=== PATIENT | female | born 1935 | race Caucasian/White ===

== ENCOUNTER 2019-07-05 19:22 | Emergency (ER) | payer OTHER ==
[~2019-07-05] VITALS: Ht 162.6 cm; Wt 63.5 kg
[2019-07-05 19:50] VITALS: BP_SYST 127
--- NOTE | 2019-07-05 19:50 | NUR ---
Pt BIB daughter for medical clearnace prior to transferring to [facility]. Pt AAOx2, confused per baseline, calm demeanor. Denies c/o pain or discomfort, no needs verbalized.
--- NOTE | 2019-07-05 19:50 | NUR ---
Pt wheeled to bed 5 for evaluation
--- NOTE | 2019-07-05 19:55 | NUR ---
Dr. Mathis at bedside.
[2019-07-05 20:11] LABS: BASOPHILS # (AUTO) 0.1 K/uL (0.0-0.2); BASOPHILS % (AUTO) 1.1 % (0.0-2.0); EOSINOPHILS # (AUTO) 0.1 K/uL (0.0-0.4); EOSINOPHILS % (AUTO) 1.7 % (0.0-4.0); HEMATOCRIT 42.3 % (36-48); HEMOGLOBIN 14.4 g/dL (12.0-16.0); LYMPHOCYTES # (AUTO) 1.9 K/uL (1.0-5.5); LYMPHOCYTES % (AUTO) 27.8 % (20.5-51.5); MEAN CORPUSCULAR HEMOGLOBIN 31 pg (27-31); MEAN CORPUSCULAR HGB CONC 34 % (32-36); MEAN CORPUSCULAR VOLUME 90 fL (79.0-98.0); MONOCYTES # (AUTO) 0.7 K/uL (0.0-1.0); MONOCYTES % (AUTO) 10.8 % (1.7-9.3); NEUTROPHILS # (AUTO) 3.9 K/uL (1.8-7.7); NEUTROPHILS % (AUTO) 58.6 % (40.0-70.0); PLATELET COUNT (AUTO) 271 K/uL (130-430); RED CELL DISTRIBUTION WIDTH 13.9 % (9.0-15.0); WHITE BLOOD COUNT (AUTO) 6.7 K/uL (4.8-10.8)
[2019-07-05 20:25] LABS: ANION GAP 10 (5-15); CALCIUM 9.3 mg/dL (8.4-11.0); CHLORIDE 104 mmol/L (98-107); CREATININE 0.67 mg/dL (0.55-1.30); GLUCOSE 103 mg/dL (70-99); POTASSIUM 3.6 mmol/L (3.5-5.1); SODIUM SERUM 135 mmol/L (136-145); UREA NITROGEN, BLOOD 12 mg/dL (8-21)
[2019-07-05 20:29] LABS: ALANINE AMINOTRANSFERASE 17 U/L (12-78); ALBUMIN 4.2 g/dL (3.4-4.8); ASPARTATE AMINOTRANSFERASE 17 U/L (10-37); CHOLESTEROL 177 mg/dL (<200); HDL CHOLESTEROL 64 mg/dL (>55); LDL CHOLESTEROL 90 mg/dL (<100); TOTAL BILIRUBIN 0.4 mg/dL (0.0-1.0); TRIGLYCERIDES 61 mg/dL (30-150)
[2019-07-05 20:31] LABS: ACETAMINOPHEN < 1 ug/mL (1-30)
[2019-07-05 20:34] LABS: ALCOHOL, BLOOD < 3 mg/dL (<10)
--- NOTE | 2019-07-05 21:00 | NUR ---
Pt alert, denies c/o pain or discomfort, no needs verbalized.
[2019-07-05 22:14] LABS: BILIRUBIN,URINE NEGATIVE (NEGATIVE); CLARITY/URINE CLOUDY (CLEAR); COLOR,URINE YELLOW (YELLOW); GLUCOSE,URINE NEGATIVE (NEGATIVE); KETONES,URINE NEGATIVE (NEGATIVE); LEUKOCYTE ESTERASE ,URINE 2+ (NEGATIVE); NITRITE, URINE POSITIVE (NEGATIVE); PROTEIN URINE NEGATIVE (NEGATIVE); UROBILINOGEN,URINE 0.2 (0.2-1.0)
[2019-07-05 22:15] LABS: BLOOD, URINE TRACE (NEGATIVE)
[2019-07-05 22:27] LABS: BARBITURATE, URINE NEGATIVE (NEG <=200); BENZODIAZEPINE, URINE NEGATIVE (NEG <=150); CANNABINOID, URINE NEGATIVE (NEG <=50); COCAINE, URINE NEGATIVE (NEG <=150); METHAMPHETAMINES SCREEN,URINE NEGATIVE (NEG <=500); OPIATE, URINE NEGATIVE (NEG <=100); PHENCYCLIDINE SCREEN,URINE NEGATIVE (NEG <=25); UR TRICYCLIC ANTIDEPRESSANTS NEGATIVE (NEG <=300); URINE AMPHETAMINE NEGATIVE (NEG <=500); URINE METHADONE NEGATIVE (NEG <=200); URINE OXYCODONE SCREEN NEGATIVE (NEG <=100); URINE PROPOXYPHENE SCREEN NEGATIVE (NEG <=300)
[2019-07-05 22:33] LABS: BACTERIA,URINE MANY /HPF (None Seen); MUCUS,URINE 2+ /LPF (None Seen); RBC,URINE 0-3 /HPF (0-3); WBC,URINE 20-50 /HPF (0-3)
[2019-07-05 22:50] VITALS: BP_SYST 124
--- NOTE | 2019-07-05 22:50 | NUR ---
Patient to be transferred to [facility]. Is being transferred due to higher level of care. Receiving facility has accepting physician and available space. ER physician has signed transfer form. Patient or responsible constitution party has agreed to transfer and signed form. Patient belongings inventoried and will be sent with patient. Copy of nursing notes, lab reports, EKG, Physicians Orders and X-rays to be sent with patient. Report called to BECKA Duran at receiving facility. Receiving physician is Dr. Martin. Pt leaves ER via stretcher in stable condition in c/o Medic-1.
== END 2019-07-05 22:50 | disposition short-term general hospital (02) ==
LOC: SED 19:22
DX: N39.0 Urinary tract infection, site not specified (principal); K21.9 Gastro-esophageal reflux disease without esophagitis; F41.9 Anxiety disorder, unspecified; G30.9 Alzheimer's disease, unspecified; F02.80 Dementia in other diseases classified elsewhere, unspecified severity, without behavioral disturbance, psychotic disturbance, mood disturbance, and anxiety
CPT/HCPCS: 36415; 80053; 80061; 80307; 81000; 83036; 85025; 87081; 87086; 87186; 99285; G0480; G0481; G0482

== ENCOUNTER 2019-07-11 20:37 | Inpatient (IN) | payer OTHER ==
[~2019-07-11] VITALS: Ht 154.9 cm; Wt 54.9 kg
[~2019-07-11 20:37] MED LIST: BUPIVACAINE /EPINEPHRINE/PF 0.5% 30 ML VIAL INJ ONE; CEFAZOLIN 2 GM IVPB PREMIX 50 ML IV ONE; DEXAMETHASONE SOD PHOSPHATE 4 MG/ML VIAL IVP ONE; MEPERIDINE HCL/PF 100 MG/ML AMP IM ONE; ONDANSETRON HCL 4 MG/2 ML VIAL IVP ONE; PROPOFOL 200MG/ 20ML VIAL (DIPRIVAN) IV ONE; SEVOFLURANE 15 MIN GAS INH ONE; fentaNYL CITRATE/PF 100 MCG/2 ML AMP IVP ONE
[2019-07-11 20:45] VITALS: BP_SYST 130
[2019-07-11] MEDS ORDERED: cefTRIAXone 1 GM in D5W 50 ML IV ONE (22:15)
--- NOTE | 2019-07-11 22:56 | NUR ---
Placed in room 2 . Placed on desk monitor, blood pressure machine and pulse oximeter. To gown for exam. Side rails up. Report given to ARIAN JOVEL.
--- NOTE | 2019-07-11 22:56 | NUR ---
Pt sent from [facility] r/t Right femur fx sustained from an unwitnessed fall on Tuesday. Pt AAOx1, denies c/o pain or discomfort. VSS, CL[place].
--- NOTE | 2019-07-11 23:00 | NUR ---
Dr. Amanda at bedside.
--- NOTE | 2019-07-11 23:10 | NUR ---
# 20 gauge angiocath placed to LAC. Use of asceptic technique. Opsite placed over site. Blood return noted. Blood for lab drawn from site. Flushed with 10 cc of normal saline. No evidence of infiltration noted. Patient tolerated well.
--- NOTE | 2019-07-11 23:30 | NUR ---
#14 In/Out cath procedure performed. ~100 mL cloudy yellow urine return. Specimen collected and sent to lab. Pt tolerated well.
[2019-07-11 23:38] LABS: BASOPHILS % (AUTO) 0.4 % (0.0-2.0); EOSINOPHILS # (AUTO) 0.1 K/uL (0.0-0.4); EOSINOPHILS % (AUTO) 0.8 % (0.0-4.0); HEMOGLOBIN 13.9 g/dL (12.0-16.0); LYMPHOCYTES # (AUTO) 1.5 K/uL (1.0-5.5); LYMPHOCYTES % (AUTO) 16.5 % (20.5-51.5); MEAN CORPUSCULAR HEMOGLOBIN 30 pg (27-31); MEAN CORPUSCULAR HGB CONC 34 % (32-36); MEAN CORPUSCULAR VOLUME 90 fL (79.0-98.0); MONOCYTES # (AUTO) 1.1 K/uL (0.0-1.0); MONOCYTES % (AUTO) 11.7 % (1.7-9.3); NEUTROPHILS # (AUTO) 6.4 K/uL (1.8-7.7); NEUTROPHILS % (AUTO) 70.6 % (40.0-70.0); PLATELET COUNT (AUTO) 260 K/uL (130-430); RED BLOOD CELL COUNT(AUTO) 4.58 MIL/uL (4.2-6.2); RED CELL DISTRIBUTION WIDTH 13.9 % (9.0-15.0); WHITE BLOOD COUNT (AUTO) 9.1 K/uL (4.8-10.8)
--- NOTE | 2019-07-11 23:50 | NUR ---
Specimens for Influenza and MRSA collected and sent to lab.
[2019-07-11 23:51] LABS: ANION GAP 8 (5-15); CALCIUM 9.1 mg/dL (8.4-11.0); CHLORIDE 104 mmol/L (98-107); GLUCOSE 147 mg/dL (70-99); POTASSIUM 3.9 mmol/L (3.5-5.1); SODIUM SERUM 141 mmol/L (136-145); UREA NITROGEN, BLOOD 23 mg/dL (8-21)
[2019-07-11 23:56] LABS: ALANINE AMINOTRANSFERASE 24 U/L (12-78); ALBUMIN 3.4 g/dL (3.4-4.8); ASPARTATE AMINOTRANSFERASE 22 U/L (10-37); TOTAL BILIRUBIN 0.3 mg/dL (0.0-1.0)
[2019-07-11] MEDS ORDERED: HYDR-4272 PO (23:59)
[2019-07-11] MEDS ORDERED: ACET325T53 PO ×2 (23:59)
[2019-07-11] MEDS ORDERED: HYDR-4037 PO (23:59)
[2019-07-11] MEDS ORDERED: PRO40 PO (23:59)
[2019-07-11] MEDS ORDERED: POLY17PO4 PO (23:59)
[2019-07-11] MEDS ORDERED: VITAMIN D PO (23:59)
[2019-07-11] MEDS ORDERED: NICO-736 TP (23:59)
[2019-07-11] MEDS ORDERED: DONE10TA44 PO (23:59)
[2019-07-11] MEDS ORDERED: ZOLP5TAB2 PO (23:59)
[2019-07-11] MEDS ORDERED: NITR-85 PO (23:59)
[2019-07-11] MEDS ORDERED: ARIP10TA9 PO (23:59)
[2019-07-11] MEDS ORDERED: SENN8.6T19 PO (23:59)
--- NOTE | 2019-07-12 | NUR ---
Medication reconciliation completed with information provided by list from facility. Any prior medication reconciliation on file was reviewed and corrected.
--- NOTE | 2019-07-12 | NUR ---
Patient will be admitted to care of [facility]. Admitted to Medsurg unit. Will go to room 120A. Complete and up to date summary report printed. SBAR report to be given at bedside with opportunity for questions.
--- NOTE | 2019-07-12 00:08 | NUR ---
Pt to CT via stretcher in stable condition.
--- NOTE | 2019-07-12 00:20 | NUR ---
Pt returns from CT. Denies c/o pain or discomfort, no needs verbalized. VSS.
--- NOTE | 2019-07-12 00:22 | NUR ---
# 16 FR Kellogg catheter with use of sterile technique. Immediate return of 100 cc Cloudy yellow urine noted. Bedside drainage bag placed below level of bladder. Urine sample collected and sent to lab. Pt tolerated procedure fair. Patient unable to toilet self.
--- NOTE | 2019-07-12 00:24 | NUR ---
Patient will be admitted to care of Dr. Peterson. Admitted to Med/Surg unit. Will go to room 120A. Belongings list completed. Complete and up to date summary report printed. Pt report called to BECKA Moore.
[2019-07-12 00:55] VITALS: BP_SYST 168
--- NOTE | 2019-07-12 00:56 | NUR ---
ADMISSION: The patient, JUDY NICOLAS, 83 y/o, F admitted by MIRIAM MACARIO MD, was given written information regarding hospital policies, unit procedures and contact persons. Pt was informed her nurse will be Stephanie.
[2019-07-12 01:12] VITALS: BP_SYST 168
--- NOTE | 2019-07-12 01:27 | NUR ---
Called the Emergency Department to inquire on whether they received a Diet order for this patient. ED staff stated that they spoke with Dr Peterson, who will be placing his own diet orders and any additional orders. Will await for orders to be placed.
--- NOTE | 2019-07-12 01:36 | NUR ---
CONSULT: CONSULT CALLED FOR DR. ROMERO I SPOKE WITH JUAN RAMON GARCIA REASON FOR CONSULT: RIGHT HIP FRACTURE REQUESTING CONSULT: DR. MACARIO PAPER BAG MAKING MACHINIST PHONE NUMBER: [phone] Addendum: 07/12/19 at 0533 by Kiki Rodriguez [facility] [place] NOTICED THAT DR. ROMREO IS SUSPENDED I TOLD RN THAT WE HAVE TO NOTIFIED AMIRAH ABOUT IT ALSO I FOUND OUT THAT DR. ROMERO IS ALSO LOAN SECRETARY FOR DR. ROMAN UNLESS WE CALL DR. ROMAN OFFICE AT [phone] THIS CONSULT
[2019-07-12] MEDS ORDERED: FLU VACC TS2019(65UP)/MF59C/PF 45 MCG/0.5 ML SYRINGE I.M. PRN (02:00)
--- NOTE | 2019-07-12 03:24 | NUR ---
Patient resting comfortably in bed, eyes closed. Breathing even and unlabored with visible chest rise and fall noted. No SOB, no acute distress, no signs of pain or facial grimacing noted. Bed is locked, lowest position, 2x side rails up, bed alarm is on. Call light is within reach.
[2019-07-12] MEDS: KCL 20 mEq in D5/0.45NS 1000mL 1,000 ML IV SCH ×2 (03:37→16:58)
--- NOTE | 2019-07-12 04:38 | NUR ---
Julian traction applied with 5lbs. Patient tolerated procedure well.
[2019-07-12 05:22] LABS: BILIRUBIN,URINE NEGATIVE (NEGATIVE); BLOOD, URINE NEGATIVE (NEGATIVE); CLARITY/URINE CLEAR (CLEAR); COLOR,URINE YELLOW (YELLOW); GLUCOSE,URINE NEGATIVE (NEGATIVE); KETONES,URINE NEGATIVE (NEGATIVE); LEUKOCYTE ESTERASE ,URINE NEGATIVE (NEGATIVE); NITRITE, URINE NEGATIVE (NEGATIVE); PROTEIN URINE NEGATIVE (NEGATIVE); UROBILINOGEN,URINE 0.2 (0.2-1.0)
--- NOTE | 2019-07-12 05:43 | NUR ---
Klaudia Bell Patient is unable to state whether she received the flu shot previously. Attempted to call Klaudia Bell where the patient came from at [phone], which is the number that was found in the charts; however, was sent to voicemail that says the hospital is not open until 0830. Will endorse to dayshift to follow up regarding the patients influenza immunization status.
--- NOTE | 2019-07-12 06:35 | NUR ---
Closing Notes Patient is resting comfortably in bed, AAOx1, positive affect, smiling. No SOB, no acute distress, no signs of pain or facial grimacing noted. IV site intact, dressing clean and dry, currently infusing IVF per MD order, see eMAR for details. Bed is locked, lowest position, 2x side rails up, bed alarm is on. Call light is within reach. Fall and safety precautions maintained. All needs have been met during this shift. Will endorse care to oncoming dayshift nurse.
--- NOTE | 2019-07-12 07:15 | NUR ---
received patient alert awake x 1 confused. vitals signs stable. afebrile. lungs bilaterally clear.abdomen soft and non distended. has iv access on the left ac #20. with D5 1/2 NS +20meq kcl at 75cc/hr infusing on well. bed low position, alarmed and locked. has 5lbs bucks traction noted. on the right foot. and has murray catheter in placed. continue to monitor patients status.
--- NOTE | 2019-07-12 07:44 | NUR ---
CONSULTATION PAGED/CALLED Reason for Consultation: RIGHT HIP FRACTURE Person Who was Notified: MICHAEL (EXCHANGE) Consulting Physician: DR. ROMAN Red Leader Specialty: ORTHO Ordering Physician: DR. MACARIO
--- NOTE | 2019-07-12 07:46 | NUR ---
CONSULTATION PAGED/CALLED Reason for Consultation: PSYCHOSIS Person Who was Notified: DR. LAM Consulting Physician: DR. LAM Clinical Data Management Manager Specialty: PSYCHE Ordering Physician: DR. MACARIO
[2019-07-12 09:08] VITALS: BP_SYST 138
--- NOTE | 2019-07-12 09:30 | NUR ---
called dr gifford for pain meds. awaiting to call back
--- NOTE | 2019-07-12 10:48 | NUR ---
pain meds given. made comfortable.
[2019-07-12] MEDS ORDERED: HYDROmorphone 1 MG INJ. 1 MG/ML AMPUL ONE (11:00)
--- NOTE | 2019-07-12 11:16 | NUR ---
Nutrition Update Alirio Scale 15 noted. Pt admitted for acute R hip fracture. Diet: mechanical soft BMI: 22.9 kg/m2 RD to follow per nutrition care standards.
--- NOTE | 2019-07-12 12:00 | NUR ---
student nurse darwin and instructor did ritesh care and had bowel movement x 1 soft brown stool bed changed.
[2019-07-12 12:40] VITALS: BP_SYST 116
[2019-07-12] MEDS ORDERED: PANTOPRAZOLE SODIUM 40 MG TAB PO ONE (13:45)
[2019-07-12] MEDS ORDERED: ACETAMINOPHEN 325 MG TABLET PO PRN (13:45)
[2019-07-12] MEDS ORDERED: ZOLPIDEM TARTRATE 5 MG TABLET PO PRN (13:45)
--- NOTE | 2019-07-12 14:30 | NUR ---
REPORT GIVEN TO MANISHA JOVEL.
--- NOTE | 2019-07-12 14:35 | NUR ---
RESUME CARE Received the report from BECKA River at bedside. Patient resting in the bed. No acute distress. AD RN Davin inserted new IV to LFA, gauge 22, no redness, no swelling, no drainage. On KCl 20mEq in D5 1/2NS at 75ml/hr, infusing well. Womack's traction to right leg intact with 5lbs. Family at bedside. Safety measure maintained. Call light within reached. Bed locked in low position, side rails up, bed alarm on. SBAR received. Will continue to monitor.
--- NOTE | 2019-07-12 15:00 | NUR ---
PATIENT HAS RT HEEL ERYTHEMA NOTED. RT HEEL. PHOTOS TAKEN AND PRESENT ON ADMISSION
[2019-07-12] MEDS: hydrALAZINE HCL 10 MG TABLET PO SCH ×2 (15:03→21:14)
--- NOTE | 2019-07-12 16:17 | NUR ---
Ortho consult follow up: Called exchange, Spoke with Nash to follow up on the consult.
[2019-07-12 16:46] VITALS: BP_SYST 131
--- NOTE | 2019-07-12 17:56 | NUR ---
ORTHO CONSULT Eliel Hoang not coming today. Called exchange and Dr. Stallings energy control officer and stated that he is not doing surgery. Dr. Gomez in the unit at this time, make aware the consult. Per Dr. Gomez he will sign all the paper then will be clear for suspension. will come to see the patient tomorrow.
--- NOTE | 2019-07-12 18:40 | NUR ---
SEEN BY DR. ROMERO WITH ORDER RECEIVED. DR. ROMERO TALKED AND ANSWERED THE QUESTION TO THE FAMILY HAD AT BEDSIDE.
--- NOTE | 2019-07-12 18:50 | NUR ---
CLOSING NOTE Patient resting in the bed. No acute distress. Skin warm and dry to touch. IV intact to LFA, no redness, no swelling, no drainage. On KCl 20mEq in D5 1/2NS at 75ml/hr, infusing well. Womack's traction to right leg intact with 5lbs. Family at bedside. All needs met. Safety measure maintained. Call light within reached. Bed locked in low position, side rails up, bed alarm on. Will endorse to night nurse.
--- NOTE | 2019-07-12 19:40 | NUR ---
Initial note: Received report from isidro RN. Patient is resting in bed. No acute distress. Even and unlabored breathing on room air. IV fluids infusing well to left forearm, no infiltration. Kellogg catheter draining yellow urine to gravity. Bilateral wrist mittens in place, no skin breakdown noted. Call light with patient. Safety, fall precautions in place. Will continue with plan of care.
[2019-07-12 20:00] VITALS: BP_SYST 141
[2019-07-12 20:15] LABS: PROTHROMBIN TIME 10.2 SECS (9.5-12.5)
[2019-07-12] MEDS: ENOXAPARIN SODIUM 40 MG/0.4 ML SYRINGE SUBCUT SCH (21:00)
[2019-07-12] MEDS: DONEPEZIL HCL 5 MG TABLET (ARICEPT) PO SCH (21:14)
--- NOTE | 2019-07-12 22:21 | NUR ---
Rounds: Patient is sleeping, no acute distress. Tolerating room air. IV fluids infusing well. Bilateral wrist mittens in place. Call light with patient. Will continue to monitor.
[2019-07-13 00:05] VITALS: BP_SYST 132
--- NOTE | 2019-07-13 01:10 | NUR ---
VARELA CATH: Found patient's Varela catheter completely dislodged, bulb tip inflated and intact. No trauma to perineum noted. 16 FR Varela catheter with 10 ML bulb inserted with use of sterile technique. Bulb inflated with 10 ML sterile water. Immediate return of 100 ML yellow urine noted. Bedside drainage bag placed below level of bladder.
[2019-07-13] MEDS: KCL 20 mEq in D5/0.45NS 1000mL 1,000 ML IV SCH ×2 (03:27→14:58)
--- NOTE | 2019-07-13 04:01 | NUR ---
Rounds: Patient is resting in bed, no acute distress. Tolerating room air. IV fluids infusing well. Kellogg catheter draining well to gravity. Bilateral soft wrist mittens in place, skin and circulation WNL. Call light with patient. Will continue monitoring.
[2019-07-13] MEDS: hydrALAZINE HCL 10 MG TABLET PO SCH ×3 (06:00→22:00)
--- NOTE | 2019-07-13 06:19 | NUR ---
Dr. Martin rounds: MD at bedside to assess patient. Provided update to MD regarding patient's status overnight. Verbal order received for Ativan 0.5 MG IV Q4H PRN for agitation/anxiety. Verified by read-back, RN to input.
--- NOTE | 2019-07-13 06:23 | NUR ---
Closing note: Patient is sleeping in bed, no acute distress. Tolerating room air. IV fluids infusing well, no infiltration to site. Kellogg catheter draining well to gravity. Bilateral wrist mittens in place per MD order. All needs met. Safety, fall precautions observed. Will endorse care to dayshift RN.
[2019-07-13] MEDS ORDERED: LORazepam 2 MG/ML VIAL IVP PRN (06:30)
[2019-07-13 07:16] LABS: BASOPHILS # (AUTO) 0.1 K/uL (0.0-0.2); BASOPHILS % (AUTO) 0.7 % (0.0-2.0); EOSINOPHILS # (AUTO) 0.1 K/uL (0.0-0.4); EOSINOPHILS % (AUTO) 1.5 % (0.0-4.0); HEMATOCRIT 34.6 % (36-48); HEMOGLOBIN 11.8 g/dL (12.0-16.0); LYMPHOCYTES # (AUTO) 1.6 K/uL (1.0-5.5); MEAN CORPUSCULAR HEMOGLOBIN 30 pg (27-31); MEAN CORPUSCULAR HGB CONC 34 % (32-36); MEAN CORPUSCULAR VOLUME 89 fL (79.0-98.0); MONOCYTES # (AUTO) 0.9 K/uL (0.0-1.0); MONOCYTES % (AUTO) 9.8 % (1.7-9.3); NEUTROPHILS # (AUTO) 6.6 K/uL (1.8-7.7); PLATELET COUNT (AUTO) 251 K/uL (130-430); RED BLOOD CELL COUNT(AUTO) 3.88 MIL/uL (4.2-6.2); RED CELL DISTRIBUTION WIDTH 13.8 % (9.0-15.0); WHITE BLOOD COUNT (AUTO) 9.3 K/uL (4.8-10.8)
--- NOTE | 2019-07-13 07:30 | NUR ---
OPENING NOTES: RECEIVED PATIENT FROM TEST ENGINE EVALUATOR NURSE. PATIENT IS AWAKE AND ALERT x1 LAYING DOWN IN BED. PATIENT IS TOLERATING OXYGEN AT ROOM AIR WITH NO SIGNS OF DISTRESS OR SHORTNESS OF BREATH NOTED. PATIENT IS ON BILATERAL WRIST MITTENS WITH NO SIGNS OF DECREASED CIRCULATION NOTED DUE TO PATIENT ATTEMPTING TO REMOVE VARELA. VARELA CATHETER INTACT AND DRAINING BY GRAVITY. PATIENT IN STABLE CONDITION. SAFETY, FALL AND ASPIRATION PRECAUTIONS ARE IN PLACE. BED LOCKED IN LOWEST POSITION WITH CALL LIGHT IN REACH. WILL CONTINUE TO MONITOR PATIENT FOR ANY CHANGES.
[2019-07-13 07:42] LABS: ALANINE AMINOTRANSFERASE 21 U/L (12-78); ALBUMIN 2.7 g/dL (3.4-4.8); ANION GAP 11 (5-15); ASPARTATE AMINOTRANSFERASE 17 U/L (10-37); CALCIUM 7.9 mg/dL (8.4-11.0); CHLORIDE 105 mmol/L (98-107); CREATININE 0.59 mg/dL (0.55-1.30); GLUCOSE 132 mg/dL (70-99); POTASSIUM 3.5 mmol/L (3.5-5.1); SODIUM SERUM 138 mmol/L (136-145); TOTAL BILIRUBIN 0.5 mg/dL (0.0-1.0); UREA NITROGEN, BLOOD 17 mg/dL (8-21)
[2019-07-13 08:17] VITALS: BP_SYST 129
[2019-07-13] MEDS: POLYETHYLENE GLYCOL 3350, 17 GM/ POWD.PACK PO SCH (09:00)
[2019-07-13] MEDS: SENNOSIDES 8.6 MG TABLET PO SCH (09:00)
[2019-07-13] MEDS: PANTOPRAZOLE SODIUM 40 MG TAB PO SCH (09:00)
[2019-07-13] MEDS: ARIPiprazole 5 MG TAB PO SCH (09:00)
[2019-07-13] MEDS: NICOTINE 21 MG/24 HR PATCH.TD24 TD SCH (09:35)
--- NOTE | 2019-07-13 10:10 | NUR ---
RN ROUNDS: PATIENT IS ASLEEP LAYING DOWN IN BED. PATIENT IS ON BILATERAL WRIST MITTENS WITH NO SIGNS OF DECREASED CIRCULATION NOTED DUE TO PATIENT ATTEMPTING TO REMOVE LINES. PATIENT IS TOLERATING OXYGEN ON ROOM AIR WITH NO SIGNS OF DISTRESS NOTED. PATIENT IN STABLE CONDITION. WILL CONTINUE TO MONITOR PATIENT FOR ANY CHANGES.
[2019-07-13 12:00] VITALS: BP_SYST 126
--- NOTE | 2019-07-13 12:44 | NUR ---
RN ROUNDS: PATIENT IS AWAKE AND ALERT x1 LAYING DOWN IN BED WATCHING TELEVISION. PATIENT IS ON BILATERAL MITTENS WITH NO SIGNS OF DECREASED CIRCULATION NOTED DUE TO PATIENT ATTEMPTING TO REMOVE LINES. PATIENT IS TOLERATING OXYGEN ON ROOM AIR WITH NO SIGNS OF DISTRESS NOTED. PATIENT IN STABLE CONDITION. WILL CONTINUE TO MONITOR PATIENT FOR ANY CHANGES.
[2019-07-13] MEDS: HYDROmorphone 1 MG INJ. 1 MG/ML AMPUL IVP PRN (13:49)
--- NOTE | 2019-07-13 14:30 | NUR ---
RN ROUNDS: PATIENT IS ASLEEP LAYING DOWN IN BED. PATIENT IS ON BILATERAL MITTENS DUE TO PATIENT BEING CONFUSED AND ATTEMPTING TO PULL OUT VARELA. PATIENT STATES SHE IS HAVING PAIN. PRN PAIN MEDICATION TO BE GIVEN. PATIENT IN STABLE CONDITION. WILL CONTINUE TO MONITOR PATIENT FOR ANY CHANGES.
--- NOTE | 2019-07-13 16:20 | NUR ---
RN ROUNDS: PATIENT IS ASLEEP LAYING DOWN IN BED. PATIENT IS ON BILATERAL MITTENS WITH NO SIGNS OF DECREASED CIRCULATION NOTED DUE TO PATIENT BEING CONFUSED AND ATTEMPTING TO REMOVE LINES. PATIENT IS TOLERATING OXYGEN ON ROOM AIR WITH NO SIGNS OF DISTRESS NOTED. PATIENT IN STABLE CONDITION. WILL CONTINUE TO MONITOR PATIENT FOR ANY CHANGES.
[2019-07-13 16:57] VITALS: BP_SYST 130
--- NOTE | 2019-07-13 17:10 | NUR ---
OR: PATIENT WAS TAKEN TO THE OR. PATIENT IN STABLE CONDITION. WILL AWAIT THE PATIENT'S RETURN TO THE FLOOR.
[2019-07-13] MEDS ORDERED: POLYMYXIN 500,000/BACIT.10,000 UNITS in NS IRR 1 L IR ONE (17:49)
[2019-07-13] MEDS ORDERED: LR 1,000 ML IV SCH (17:54)
[2019-07-13] MEDS ORDERED: HYDROmorphone 1 MG INJ. 1 MG/ML AMPUL IVP PRN (18:00)
[2019-07-13] MEDS ORDERED: ONDANSETRON HCL 4 MG/2 ML VIAL IVP PRN (18:00)
[2019-07-13] MEDS ORDERED: KETOROLAC TROMETHAMINE 30 MG VIAL IVP PRN (18:00)
[2019-07-13] MEDS ORDERED: MORPHINE 4 MG/ML INJ. SYRINGE IVP PRN (18:00)
--- NOTE | 2019-07-13 18:51 | NUR ---
CLOSING NOTES: PATIENT STILL IN OR. WILL ENDORSE PATIENT CARE TO ONCOMING CODING DIRECTOR NURSE.
--- NOTE | 2019-07-13 19:24 | NUR ---
PATIENT IN OR Received report and patient is in OR.
[2019-07-13 20:05] VITALS: BP_SYST 147
--- NOTE | 2019-07-13 20:05 | NUR ---
Returned from OR Received report from BECKA Carbajal. Patient is lethargic, though arousable and she denies pain. Dressing on right hip is CDI. She has murray caheter and bag is draining to gravity. V/S taken and B/P 147/69 temp is 96.3 temporal scan. Provided warm blankets.
--- NOTE | 2019-07-13 20:15 | NUR ---
Granddaughter called incoming call from mulu Reynolds. She was updated on patient and transferred call to patient's room.
--- NOTE | 2019-07-13 20:56 | NUR ---
reassess temp Patient's temp is 97.3 temporal scan. She is presently awake and talking w/ granddaughter who is visiting at bedside.
[2019-07-13] MEDS: ENOXAPARIN SODIUM 40 MG/0.4 ML SYRINGE SUBCUT SCH (21:00)
[2019-07-13] MEDS: traZODone HCL 50 MG TABLET (DESYREL) PO SCH ×2 (21:00→22:02)
[2019-07-13 21:10] VITALS: BP_SYST 133
[2019-07-13] MEDS: DONEPEZIL HCL 5 MG TABLET (ARICEPT) PO SCH (22:03)
--- NOTE | 2019-07-13 23:20 | NUR ---
Incentive spirometer RT at bedside provided IS and instructing patient on use. She demonstrated inspiration of 500 ml.
[2019-07-13] MEDS: CEFAZOLIN 1 GM IVPB PREMIX 50 ML IV SCH (23:27)
[2019-07-13] MEDS ORDERED: CEFAZOLIN 1 GM IVPB PREMIX 100 ML IV ONE (23:28)
--- NOTE | 2019-07-13 23:40 | NUR ---
Antibiotic Due antibiotic given. Grand daughter is at bedside and educated on side effects; she verbalized understanding.
--- NOTE | 2019-07-14 | NUR ---
RN rounds Patient resting w/eyes closed, nonlabored breathing, neurovascular checks wnl. will continue to monitor.
--- NOTE | 2019-07-14 02:05 | NUR ---
RN rounds Patient resting w/ eyes closed, easily aroused, she denies pain.
[2019-07-14 04:20] VITALS: BP_SYST 108
--- NOTE | 2019-07-14 04:20 | NUR ---
patient care Patient is awake, talking and is confused. Denies pain and tolerates reposition-patient care. IVF infusing well. Upon mitten-restraint release she moves hands and reaches for linen and pulls on gown, she is not combative and cooperates. She was offered water and did drink water.
--- NOTE | 2019-07-14 06:15 | NUR ---
lab draw paint laboratory technician at bedside for lab draw
[2019-07-14] MEDS: CEFAZOLIN 1 GM IVPB PREMIX 50 ML IV SCH (06:23)
[2019-07-14] MEDS: KCL 20 mEq in D5/0.45NS 1000mL 1,000 ML IV SCH ×2 (06:24→20:53)
[2019-07-14] MEDS: hydrALAZINE HCL 10 MG TABLET PO SCH ×3 (06:25→21:24)
--- NOTE | 2019-07-14 06:50 | NUR ---
closing note Due medications given. Patient is awake and confused, speaking non coherent topics. She denies pain. Needs met throughout shift. IVF infusing as ordered, and safety precautions in place. Will endorse care to day shift nurse.
[2019-07-14 07:01] LABS: BASOPHILS % (AUTO) 0.1 % (0.0-2.0); HEMATOCRIT 32.7 % (36-48); HEMOGLOBIN 11.3 g/dL (12.0-16.0); LYMPHOCYTES % (AUTO) 8.6 % (20.5-51.5); MEAN CORPUSCULAR HEMOGLOBIN 30 pg (27-31); MEAN CORPUSCULAR HGB CONC 34 % (32-36); MEAN CORPUSCULAR VOLUME 88 fL (79.0-98.0); MONOCYTES % (AUTO) 8.7 % (1.7-9.3); NEUTROPHILS # (AUTO) 9.5 K/uL (1.8-7.7); NEUTROPHILS % (AUTO) 82.6 % (40.0-70.0); PLATELET COUNT (AUTO) 243 K/uL (130-430); RED BLOOD CELL COUNT(AUTO) 3.71 MIL/uL (4.2-6.2); RED CELL DISTRIBUTION WIDTH 13.5 % (9.0-15.0); WHITE BLOOD COUNT (AUTO) 11.6 K/uL (4.8-10.8)
[2019-07-14 07:22] LABS: ANION GAP 11 (5-15); CALCIUM 8.2 mg/dL (8.4-11.0); CHLORIDE 103 mmol/L (98-107); CREATININE 0.67 mg/dL (0.55-1.30); GLUCOSE 170 mg/dL (70-99); POTASSIUM 4.2 mmol/L (3.5-5.1); SODIUM SERUM 136 mmol/L (136-145); UREA NITROGEN, BLOOD 13 mg/dL (8-21)
--- NOTE | 2019-07-14 08:00 | NUR ---
RN INITIAL NOTES RECEIVED PATIENT IN BED NO DISTRESS , VERBALLY RESPONSIVE, IVF INFUSING AND WITH VARELA CATH INTACT PATIENT RT HIP DRESSING DRY INTACT AND NO SIGN OF BLEEDING , RT HEEL AFLOAT WITH REDNESS TO RT HEEL , WILL CONT TO MONITOR, ASSISTED WITH ADLS AND SAFETY ENSURED
[2019-07-14] MEDS: ARIPiprazole 5 MG TAB PO SCH (08:19)
[2019-07-14] MEDS: SENNOSIDES 8.6 MG TABLET PO SCH (08:19)
[2019-07-14] MEDS: POLYETHYLENE GLYCOL 3350, 17 GM/ POWD.PACK PO SCH (08:19)
[2019-07-14] MEDS: PANTOPRAZOLE SODIUM 40 MG TAB PO SCH (08:19)
[2019-07-14] MEDS: NICOTINE 21 MG/24 HR PATCH.TD24 TD SCH (08:20)
[2019-07-14 08:30] VITALS: BP_SYST 115
--- NOTE | 2019-07-14 10:00 | NUR ---
ROUNDS NO DISTRESS , APTIENT ANSWERS QUESTIONS BUT CONFUSED , WITH BILAT SOFT MITTENS , FOR PULLING TUBES
--- NOTE | 2019-07-14 12:00 | NUR ---
ROUNDS ASSISTED WITH FOOD , OFFERED SNACK AVAIL IN BED PATIENT SAID IM OK
[2019-07-14 12:12] VITALS: BP_SYST 115
--- NOTE | 2019-07-14 13:59 | NUR ---
REPOSITIONED PATIENT IS CONFUSED OFFERED PAIN MEDS , STATED SHE WILL LET ME KNOW IF SHE HAS PAIN
--- NOTE | 2019-07-14 15:33 | NUR ---
PHYSICAL THERAPY PATIENT SEEN AND EVAL BY THE PHYSICAL THERAPIST , PATIENT ASKED BEFORE IF SHE IS IN PAIN , PATIENT SAID NO , PER PT PATIENT UNABLE TO FOLLOW INSTRUCTION D/T CONFUSION , PATIENT DID NOT AMBULATE
[2019-07-14 16:14] VITALS: BP_SYST 117
[2019-07-14] MEDS ORDERED: ENOXAPARIN SODIUM 40 MG/0.4 ML SYRINGE SUBCUT SCH (17:00)
--- NOTE | 2019-07-14 17:03 | NUR ---
RT HEEL REDNESS PATIENT WITH REDNESS TO RT HEEL , KEEP AFLOAT WITH PILLOW
--- NOTE | 2019-07-14 18:18 | NUR ---
RN END NOTES PATIENT ENDORSED TO NEXT SHIFT , PATIENT SEEN BY DR CHENEY(ORTHO) INFORMED PATIENT NOTED WITH REDNESS TO RIGHT HEEL DR CHENEY PATIENT HAD IT WHEN SHE WAS ADMITTED POSSIBLY RESULTED FROM UNWITNESSED FALL INCIDENT ,MD SAID 1 PILLOW IS OK TO FLOAT THE HEEL , WILL CONT LOVENOX ORDERED ,NEEDS ATTENDED AND SAFETY ENSURED PATIENT , FAMILY CALLED NAMED ISSA BUT HER NAME IS NOT IN THE FACE , ADVISED ISSA TO CALL JUDY MAURICIO TO ADD HER NAME IN THE FACE SHEET , AWAITING RP TO CALL AND TO ADD ON OTHER RELATIVE NAME IN THE FACE SHEET. BRAYDEN IS ADDED ON THE FACE SHEET , ALSO DISCUSSED WITH THE DTR JUDY THAT DC PLANNING MAYBE TOMORROW OR TUESDAY AND UPDATED THAT PATIENT DID NOT COOPERATE GOOD WITH THE PHYSICAL THERAPIST, ALSO MENTIONED ABOUT THE REDNESS ON THE RT HEEL AND SHE SAID SHE IS AWARE , PATIENT SLEEPING AT THIS TIME
--- NOTE | 2019-07-14 19:15 | NUR ---
CHANGE OF SHIFT; pt.sleeping when received, S/P rt. hip ORIF. no acute distress. IVF infusing. on fall risk precautions, bed alarm. call light within reach. will assess alter. pt. unable to use call light, pt. room close to nurses station, frequent rounds. pt. did not eat dinner yet, will ask RETAIL MARKETING MANAGER to help her eat.
--- NOTE | 2019-07-14 20:00 | NUR ---
NOTES: pt. was fed dinner by FILLING HAULER. pt. libyan speaking. pt. went back to sleep after.
[2019-07-14 21:00] VITALS: BP_SYST 140
--- NOTE | 2019-07-14 21:00 | NUR ---
NOTES: pt. awakened. VS checked. S/P rt. hip ORIF, dressing dry and intact, with old stained blood on dressing, no further bleed. noted hip/thigh swollen. keep legs abducted with pillow. pt. c/o post op pain on rt. hip. repositioned. IV infusing via left forearm. murray cath to osd. left sequential on. pt. needs attended. Addendum: 07/15/19 at 0356 by Kathy Dos Santos RN instructed pt. on deep breathing.
[2019-07-14] MEDS: traZODone HCL 50 MG TABLET (DESYREL) PO SCH (21:22)
[2019-07-14] MEDS: DONEPEZIL HCL 5 MG TABLET (ARICEPT) PO SCH (21:22)
[2019-07-14] MEDS: HYDROmorphone 1 MG INJ. 1 MG/ML AMPUL IVP PRN (21:29)
--- NOTE | 2019-07-14 21:30 | NUR ---
NOTES: due po meds given and IV pain medication. kept warm and comfortable. Addendum: 07/15/19 at 0558 by Kathy Dos Santos RN late entry rt. foot swollen and reddish in color, rt. heel with skin discoloration.
[2019-07-14] MEDS: ENOXAPARIN SODIUM 40 MG/0.4 ML SYRINGE SUBCUT SCH (21:39)
--- NOTE | 2019-07-14 22:30 | NUR ---
NOTES: pt. sleeping when rechecked ,noted relief from pain.
--- NOTE | 2019-07-15 00:30 | NUR ---
NOTES: pt. sleeping when checked. condition observed. bed alarm on.
[2019-07-15 01:25] VITALS: BP_SYST 122
--- NOTE | 2019-07-15 03:00 | NUR ---
NOTES: continue to monitor. pt. remain sleeping. condition unchanged.
--- NOTE | 2019-07-15 05:30 | NUR ---
NOTES: pt. had small amts of incontinent stool, ritesh care done. rt. foot swollen and with multiple spots of reddish skin, rt. heel with some dark discoloration noted, picture taken. pillow in between thighs. some bruising on rt. buttock noted and rt. upper arm. Addendum: 07/15/19 at 0558 by Kathy Dos Santos RN applied foam dressing on rt. heel, off load.
--- NOTE | 2019-07-15 06:42 | NUR ---
CLOSING NOTES; pt. sleeping, no acute distress. IVF continuous. murray cath intact. rt. hip dressing intact, no bleeding with pillow in between. rt. leg slightly elevated, off load rt. heel. for further care and assistance. will endorse to day shift. on fall risk precaution.
[2019-07-15 06:50] LABS: BASOPHILS % (AUTO) 0.4 % (0.0-2.0); EOSINOPHILS # (AUTO) 0.1 K/uL (0.0-0.4); EOSINOPHILS % (AUTO) 1.4 % (0.0-4.0); HEMATOCRIT 32.7 % (36-48); HEMOGLOBIN 11.2 g/dL (12.0-16.0); LYMPHOCYTES % (AUTO) 21.7 % (20.5-51.5); MEAN CORPUSCULAR HEMOGLOBIN 31 pg (27-31); MEAN CORPUSCULAR HGB CONC 34 % (32-36); MEAN CORPUSCULAR VOLUME 89 fL (79.0-98.0); MONOCYTES # (AUTO) 1.1 K/uL (0.0-1.0); NEUTROPHILS # (AUTO) 6.1 K/uL (1.8-7.7); NEUTROPHILS % (AUTO) 64.5 % (40.0-70.0); PLATELET COUNT (AUTO) 256 K/uL (130-430); RED BLOOD CELL COUNT(AUTO) 3.68 MIL/uL (4.2-6.2); RED CELL DISTRIBUTION WIDTH 13.6 % (9.0-15.0); WHITE BLOOD COUNT (AUTO) 9.4 K/uL (4.8-10.8)
[2019-07-15 06:57] LABS: ALANINE AMINOTRANSFERASE 57 U/L (12-78); ALBUMIN 2.4 g/dL (3.4-4.8); ANION GAP 11 (5-15); ASPARTATE AMINOTRANSFERASE 42 U/L (10-37); CALCIUM 7.8 mg/dL (8.4-11.0); CHLORIDE 101 mmol/L (98-107); CREATININE 0.59 mg/dL (0.55-1.30); GLUCOSE 155 mg/dL (70-99); POTASSIUM 3.7 mmol/L (3.5-5.1); SODIUM SERUM 134 mmol/L (136-145); TOTAL BILIRUBIN 0.6 mg/dL (0.0-1.0); UREA NITROGEN, BLOOD 14 mg/dL (8-21)
--- NOTE | 2019-07-15 07:28 | NUR ---
RN INITIAL NOTES RECEIVED PATIENT IN BED SLEEPING NO DISTRESS, WITH IVF ORDERED , WITH INTACT DRESSING TO RT HIP , NO BLEEDING OR DRAINAGE NOTED , PATIENT RESP EVEN AND UNLABORED , PATIENT RT HEEL FLOATED
[2019-07-15] MEDS: KCL 20 mEq in D5/0.45NS 1000mL 1,000 ML IV SCH ×2 (09:13→20:38)
[2019-07-15] MEDS: POLYETHYLENE GLYCOL 3350, 17 GM/ POWD.PACK PO SCH (09:13)
[2019-07-15] MEDS: PANTOPRAZOLE SODIUM 40 MG TAB PO SCH (09:13)
[2019-07-15] MEDS: SENNOSIDES 8.6 MG TABLET PO SCH (09:13)
[2019-07-15] MEDS: NICOTINE 21 MG/24 HR PATCH.TD24 TD SCH (09:13)
[2019-07-15] MEDS: ARIPiprazole 5 MG TAB PO SCH (09:13)
--- NOTE | 2019-07-15 11:30 | NUR ---
ROUNDS PATIENT NOT IN ANY DISTRESS, FAMILY CALLED AND SHE SPOKE WITH THE PATIENT
[2019-07-15 12:07] VITALS: BP_SYST 98
[2019-07-15] MEDS: hydrALAZINE HCL 10 MG TABLET PO SCH ×3 (14:00→22:00)
[2019-07-15 16:00] VITALS: BP_SYST 110
--- NOTE | 2019-07-15 16:09 | NUR ---
ROUNDS PATIENT SLEEPING AT THIS TIME , RESP EVEN AND UNLABORED
--- NOTE | 2019-07-15 17:58 | NUR ---
END RN NOTES PATIENT SEEN BY DR SOW AND MADE AWARE OF THE VARELA CATH X 2 DAY POST OP, MD SAID TO KEEP CATHETER FOR SKIN PROTECTION , NOTED AND CARRIED OUT . REPOSITIONED AND WILL FOLLOW UP WITH WOUND CARE CONSULT IN AM , D/T RT HEEL REDNESS, KEEP HEELS AFLOAT AND TURNED TO SIDES A UNIT , NEEDS ATTENDED , OFFERED PAIN MEDS AGAIN PATIENT JUST LAUGHED AND SAID SHE DONT HAVE PAIN, SAFETY ENSURED , WILL CONT WITH BILAT MITTENS FOR NOW TO PREVENT FROM PULLING TUBES.NO DISTRESS
--- NOTE | 2019-07-15 19:30 | NUR ---
CHANGE OF SHIFT; pt. awake, vietnamese speaking. being fed with dinner by TRACK PATROL. no acute distress. S/P 2 day post op. rt. hip ORIF, will assess later.
[2019-07-15 20:15] VITALS: BP_SYST 105
--- NOTE | 2019-07-15 20:30 | NUR ---
NOTES: pt. confused, reoriented. IV infusing via left antecubital., bruising on rt. arm. rt. hip dressing dry and intact, some swelling noted, also rt. foot swollen with foam dressing, consult with wound care tomorrow. left leg with sequential. kept murray cath to osd. no bleeding noted. no pain noted. unable to use call light. pt. room close to nurses station, frequent rounds.
[2019-07-15] MEDS: DONEPEZIL HCL 5 MG TABLET (ARICEPT) PO SCH (20:37)
[2019-07-15] MEDS: traZODone HCL 50 MG TABLET (DESYREL) PO SCH (20:38)
[2019-07-15] MEDS: ENOXAPARIN SODIUM 40 MG/0.4 ML SYRINGE SUBCUT SCH (20:39)
--- NOTE | 2019-07-15 21:30 | NUR ---
NOTES: due po meds crushed and taken well. repositioned. been constantly talking in swedish.
--- NOTE | 2019-07-15 23:00 | NUR ---
NOTES: pt. unable to use Incentive spirometer, pt. uncooperative.
--- NOTE | 2019-07-16 00:01 | NUR ---
NOTES: pt. condition unchanged. repositioned. IVF patent. needs attended.
[2019-07-16 01:10] VITALS: BP_SYST 119
--- NOTE | 2019-07-16 02:00 | NUR ---
NOTES: pt. remains awake, getting restless. bilateral mittens intact.
[2019-07-16] MEDS: HYDROmorphone 1 MG INJ. 1 MG/ML AMPUL IVP PRN ×2 (02:48→17:18)
--- NOTE | 2019-07-16 02:50 | NUR ---
NOTES: pt. was able to remove mittens somehow, had BM and pt. playing with stool, also able to remove her dressing on her hip. noted with pain and medicated with IV Dilaudid. complete am care done and linen changed.
--- NOTE | 2019-07-16 04:00 | NUR ---
NOTES: pt. sleeping and resting when made rounds. condition observed.
--- NOTE | 2019-07-16 05:30 | NUR ---
NOTES: pt. still asleep. condition unchanged..
[2019-07-16] MEDS: hydrALAZINE HCL 10 MG TABLET PO SCH ×3 (06:35→22:00)
--- NOTE | 2019-07-16 06:40 | NUR ---
CLOSING NOTES; pt. already awake, talking in urdu. Dr. Martin was here earlier and updated on pt. status. needs further care and assistance. IVF patent. bed alarm on. will endorse to day shift.
--- NOTE | 2019-07-16 07:55 | NUR ---
INITIAL ROUNDS Received pt AAOx2, confused at times, restless, tries to pull at her right hip dressing. No s/s resp distress, no c/o pain or discomfort. IVF infusing well to LFA at ordered rate with no s/s infiltration to site. Right hip with dressing clean, dry and intact. Right heel with large red blister, off-loaded for skin care. Side rails up x3, bed alarm on, room across from nursing station and bilateral wrists for safety.
[2019-07-16 09:51] VITALS: BP_SYST 111
[2019-07-16] MEDS: PANTOPRAZOLE SODIUM 40 MG TAB PO SCH (10:05)
[2019-07-16] MEDS: ARIPiprazole 5 MG TAB PO SCH ×2 (10:05→21:00)
[2019-07-16] MEDS: POLYETHYLENE GLYCOL 3350, 17 GM/ POWD.PACK PO SCH (10:05)
[2019-07-16] MEDS: SENNOSIDES 8.6 MG TABLET PO SCH (10:05)
[2019-07-16] MEDS: NICOTINE 21 MG/24 HR PATCH.TD24 TD SCH (10:06)
[2019-07-16] MEDS: KCL 20 mEq in D5/0.45NS 1000mL 1,000 ML IV SCH (10:17)
--- NOTE | 2019-07-16 11:43 | NUR ---
Dietitian Recommendations *Recommend adding Edwar BID. Modular will provide additional 160 kcal and 5gm protein daily. *Continue Regular diet. Please see Nutritional Assessment for details. SHAR PATEL
--- NOTE | 2019-07-16 12:05 | NUR ---
Discharge Planning: DCP faxed pt referral to [facility] (f [phone] p [phone]) DCP to follow up Addendum: 07/16/19 at 1539 by Luisa Johnson DP DCP spoke to Pradeep at [facility] (f [phone] p [phone]) asked DCP to fax to a different fax ([phone]). Patients daughter has been in communication with Pradeep. DCP to follow up. Addendum: 07/16/19 at 1702 by Luisa Johnson DP Pradeep at [facility] (f [phone]) called with room 30, DC patient tomorrow morning. Room will be ready.
--- NOTE | 2019-07-16 12:20 | NUR ---
WOUND EVALUATION: Late note for 1220 secondary to patient care. Wound Consult received from Dr. Peterson. Thank you, Dr. Peterson, for the consult. Patient received in a Augustina Bed with an IsoFlex TEJAL mattress, awake, alert, confused. Patient is unable to turn in bed independently. Alirio Score is a 12. Past Medical History: Hypertension, Osteoporosis, Dementia. X-ray was significant for Acute Intertrochanteric Fracture, CT Pelvis significant for mildly displaced comminuted right intertrochanteric fracture. Recent Labs: WBC 9.4, RBC 3.68, hemoglobin 11.2, hematocrit 32.7, sodium 134, glucose 155, calcium 7.8, serum total protein 6.0, albumin 2.4, PTT 25.3. Microbiology: Blood culture results x2 in progress. MRSA screen results negative. Urine culture results negative. Intrinsic factors that delay wound healing: Hyperglycemia, Hypoalbuminemia. Extrinsic factors that delay wound healing: Decreased mobility. Patient is status post Right Hip Trochanteric Nailing by Dr. Gomez on 07/13/2019. According to documentation by BECKA Brandt, Dr. Gomez informed her that the patient already had redness on Right Heel when he saw her on 07/13/2019. Patient is status post unwitnessed fall at prior residence sustaining a right hip fracture, with right heel possibly resting on floor with hip in external rotation. Wound Assessment: 1. Right Lateral Hip: Area of purple ecchymosis, present on admission. Status post Right Hip Trochanteric Nailing. Incisional dressing is clean, dry and intact. Recommend: Reinforce or change dressing prn for soiling or dislodgement. Offload site at all times. 2. Right Medial Thigh: Area of purple ecchymosis. Recommend: No dressing needed. Continue to monitor site q shift. 3. Sacral/Buttocks areas: Blanchable redness. Recommend: Cleanse site with mild soap and water. Pat dry. Apply moisture barrier cream to site. Cover with foam dressing. Perform wound care daily, and as needed for dressing soiling or dislodgement. Offload site at all times. 4. Right Posterior Lateral Heel: sDTI. Redness already present on admission. Site has a soft, closed bulla with serous fluid and dark discoloration. Site measures 5.0 cm x 4.8 cm. Right Dorsal foot has three brown discolored spots and one brown discolored flat bulla. Right lateral malleolus has one brown discolored spot. Right ateral lower extremity superior to malleolus and one brown discolored flat bulla. Recommend: Cover sites with foam dressings. Place foot in Heelift Boot and offload at all times. Place a towel roll into boot to keep boot from touching right lateral heel. Check boot during hourly rounds to ensure that heel is freely floating. Also recommend: Reposition patient side to side only every 2 hours with pillow support and off-load pressure areas with pillows for pressure re-distribution. Offload, elevate and float bilateral left heel with pillows and right heel with Heelift Boot. Perform skin care and monitor skin integrity Q shift. Use moisture barrier cream on buttocks and other moisture susceptible areas QID and as needed for soiling. Initiate low air-loss therapy.
[2019-07-16 12:34] VITALS: BP_SYST 111
[2019-07-16 16:48] VITALS: BP_SYST 116
[2019-07-16] MEDS ORDERED: traMADol HCL HCL 50 MG TABLET (ULTRAM) PO PRN (19:00)
--- NOTE | 2019-07-16 19:00 | NUR ---
CLOSING NOTE/MD Pt remains restless and confused at times. No s/s resp distress, no c/o pain or discomfort. IVF infusing well to LFA at ordered rate with no s/s infiltration to site. Right hip with dressing clean, dry and intact. Right heel now in Heelift boot with a rolled up wash cloth placed to area with the blister to help prevent skin breakdown per dairy farm operator recommendations. Side rails up x3, bed alarm on, room across from nursing station for safety. Pt remains on bilateral wrist mittens in place due to pt pulling on tubing and Kellogg.
--- NOTE | 2019-07-16 19:10 | NUR ---
OPENING NOTES PATIENT AWAKE. PATIENT AOX1. ABLE TO FOLLOW SIMPLE COMMANDS AT THIS TIME. VERBALIZED WANTS TO EAT IN & OUT''. NO SIGNS OF RESPIRATORY DISTRESS NOTED. DENIES PAIN AND DISCOMFORT AT THIS TIME. PATIENT SPEAKS LIBERIAN AND KOSOVAN. BREATHING EVEN AND UNLABORED. ON ROOM AIR, TOLERATING WELL. ON BILATERAL SOFT MITTEN RESTRAINTS. NO INJURY NOTED. ABLE TO MOVE HANDS AND FINGER. VARELA CATHETER, ATTACHED AND SECURED, DRAINING BY GRAVITY. NEURO CHECKED DONE. PATIENT ABLE TO WIGGLE TOES AND MOVE LEGS. IVF INFUSING WELL, PATENCY NOTED. RIGHT HEEL FLOATED BY FOAM. SCD'S ON THE LEFT LEG OPERATING WELL. CALL LIGHT WITH IN REACH. BED LOCKED AND IN LOWEST POSITION. SAFETY PRECAUTIONS IN PLACE. WILL CONTINUE TO MONITOR PATIENT.
[2019-07-16 20:00] VITALS: BP_SYST 105
[2019-07-16] MEDS: DONEPEZIL HCL 5 MG TABLET (ARICEPT) PO SCH (21:00)
[2019-07-16] MEDS ORDERED: traZODone HCL 50 MG TABLET (DESYREL) PO SCH (21:00)
[2019-07-16] MEDS: MEGESTROL ACETATE 400 MG/10 ML UDC PO SCH (21:00)
--- NOTE | 2019-07-16 21:00 | NUR ---
MED PASS DUE MEDICATIONS GIVEN AT THIS TIME. PATIENT TOLERATED WELL. PATIENT FOLLOW SIMPLE COMMANDS, CONFUSION AND FORGETFULNESS IS NOTED. PATIENT WAS EDUCATED ON PURPOSE AND BENEFITS AND SIDE EFFECTS OF MEDICATIONS THAT WAS TAKEN, BUT PATIENT UNABLE TO VERBALIZED UNDERSTANDING PATIENT IS CONFUSED. MITTENS ATTACHED AND SECURED. NO INJURY NOTED. IVF INFUSING WELL. SAFETY PRECAUTIONS IN PLACE. WILL CONTINUE TO MONITOR PATIENT.
[2019-07-16] MEDS: ENOXAPARIN SODIUM 40 MG/0.4 ML SYRINGE SUBCUT SCH (21:02)
--- NOTE | 2019-07-16 23:20 | NUR ---
IV RE INSERTION PATIENT PULLS OUT IV, CATHETER INTACT. REINSERTION OF IV DONE BY BECKA PIEDRA. ATTEMPTED ONCE ON THE RIGHT FOREARM #[id number]. PATIENT CALM AND COOPERATIVE, BUT CONFUSION IS NOTED. NO SIGNS OF RESPIRATORY DISTRESS AND DISCOMFORT NOTED. BREATHING EVEN AND UNLABORED. MITTENS RE ATTACHED AGAIN. SAFETY PRECAUTIONS IN PLACE. BED ALARM ON. WILL CONTINUE TO MONITOR
--- NOTE | 2019-07-16 23:55 | NUR ---
NOTES PATIENT TRIED TO GET OF THE BED. AND AGITATION IS NOTED. PATIENT HAS PRN MEDICATION FOR AGITATION AND REMOVED FROM MEDICATION ROOM, UPON ASSESSMENT OF PATIENT BP IS DECREASED 107/49. MEDICATION WAS NOT GIVEN. BECKA BROWN AND BECKA PIEDRA-RE ORIENT PATIENT, PATIENT CALMS DOWN AT THIS TIME. WILL CONTINUE TO RE ORIENT AND MONITOR PATIENT
[2019-07-17] MEDS: KCL 20 mEq in D5/0.45NS 1000mL 1,000 ML IV SCH ×2 (00:04→14:05)
[2019-07-17 00:43] VITALS: BP_SYST 109
--- NOTE | 2019-07-17 01:48 | NUR ---
RN ROUNDS PATIENT ASLEEP AT THIS TIME. NO SIGNS OF RESPIRATORY DISTRESS AND DISCOMFORT NOTED. BREATHING EVEN AND UNLABORED. ON ROOM AIR, TOLERATING WELL. IVF INFUSING WELL. VARELA CATHETER, DRAINING BY GRAVITY. SCD'S ON LEFT LEG IS OPERATING WELL. CALL LIGHT WITHIN REACH. MITTENS ON, NO INJURY NOTED. SAFETY PRECAUTIONS IN PLACE. WILL CONTINUE TO MONITOR PATIENT.
--- NOTE | 2019-07-17 02:10 | NUR ---
RN ROUNDS PATIENT ASLEEP AT THIS TIME. NO SIGNS OF RESPIRATORY DISTRESS AND DISCOMFORT NOTED. BREATHING EVEN AND UNLABORED. ON ROOM AIR, TOLERATING WELL. IVF INFUSING WELL. VARELA CATHETER, DRAINING BY GRAVITY. SCD'S ON LEFT LEG IS OPERATING WELL. HEELS FLOATING ON, RIGHT FOOT. CALL LIGHT WITHIN REACH. MITTENS ON, NO INJURY NOTED. SAFETY PRECAUTIONS IN PLACE. ENDORSE TO BECKA DEAN FOR CONTINUITY OF CARE
--- NOTE | 2019-07-17 02:16 | NUR ---
SBAR Received SBAR report from BECKA Matthews. Patient is resting w/ eyes closed, nonlabored breathing on room air. No SOB or sign of distress. Kellogg catheter drainage bag to gravity. IVF infusing via IV to LFA. She has bilat mittens, side rails up 3x and bed alarm on.
--- NOTE | 2019-07-17 04:15 | NUR ---
RN rounds patient sleeping, but arousable, neuro-check done and repositioned, Safety precautions in place
[2019-07-17 06:27] LABS: BASOPHILS # (AUTO) 0.1 K/uL (0.0-0.2); BASOPHILS % (AUTO) 0.5 % (0.0-2.0); EOSINOPHILS # (AUTO) 0.3 K/uL (0.0-0.4); HEMATOCRIT 28.3 % (36-48); HEMOGLOBIN 9.8 g/dL (12.0-16.0); LYMPHOCYTES # (AUTO) 1.8 K/uL (1.0-5.5); LYMPHOCYTES % (AUTO) 17.8 % (20.5-51.5); MEAN CORPUSCULAR HEMOGLOBIN 31 pg (27-31); MEAN CORPUSCULAR HGB CONC 35 % (32-36); MEAN CORPUSCULAR VOLUME 88 fL (79.0-98.0); MONOCYTES # (AUTO) 0.9 K/uL (0.0-1.0); NEUTROPHILS # (AUTO) 7.2 K/uL (1.8-7.7); NEUTROPHILS % (AUTO) 69.7 % (40.0-70.0); PLATELET COUNT (AUTO) 296 K/uL (130-430); RED CELL DISTRIBUTION WIDTH 13.8 % (9.0-15.0); WHITE BLOOD COUNT (AUTO) 10.3 K/uL (4.8-10.8)
[2019-07-17 06:30] LABS: ANION GAP 8 (5-15); CHLORIDE 101 mmol/L (98-107); CREATININE 0.54 mg/dL (0.55-1.30); GLUCOSE 134 mg/dL (70-99); POTASSIUM 3.7 mmol/L (3.5-5.1); SODIUM SERUM 131 mmol/L (136-145); UREA NITROGEN, BLOOD 13 mg/dL (8-21)
[2019-07-17] MEDS: hydrALAZINE HCL 10 MG TABLET PO SCH ×2 (06:47→14:05)
--- NOTE | 2019-07-17 07:00 | NUR ---
closing note Due medication given. Patient is resting in comfortable position, nonlabored breathing on room air. No SOB or sign of distress. Kellogg catheter drainage bag to gravity. IVF infusing via IV to RFA. She has bilat mittens, side rails up 3x and bed alarm on. Will endorse care to incoming day shift nurse.
--- NOTE | 2019-07-17 07:15 | NUR ---
OPENING NOTES PT AWAKE AND ALERT. RE-ORIENTED PT TO PLACE AND TIME. FRENCH SPEAKING. PT CLEAN AND DRY, DENIES PAIN AT THIS TIME. VARELA CATHETER INTACT AND PATENT, DRAINING WELL. IV LINE INTACT AND PATENT, NO SIGNS OF INFILTRATION NOTED, FLUIDS RUNNING ORDERED PER MD. SCDS INTACT AND ON. HOB ELEVATED. BILATERAL MITTENS INTACT, NO SIGNS OF INJURY NOTED. DRESSING ON RIGHT HIP INTACT, CLEAN, AND DRY. NO ACUTE DISTRESS NOTED. ALL NEEDS MET. CALL LIGHT IN REACH. CONTINUE TO MONITOR.
[2019-07-17 08:00] VITALS: BP_SYST 126
[2019-07-17] MEDS: SENNOSIDES 8.6 MG TABLET PO SCH (09:35)
[2019-07-17] MEDS: PANTOPRAZOLE SODIUM 40 MG TAB PO SCH (09:36)
[2019-07-17] MEDS: MEGESTROL ACETATE 400 MG/10 ML UDC PO SCH (09:36)
[2019-07-17] MEDS: ARIPiprazole 5 MG TAB PO SCH (09:36)
[2019-07-17] MEDS: NICOTINE 21 MG/24 HR PATCH.TD24 TD SCH (09:36)
[2019-07-17] MEDS: POLYETHYLENE GLYCOL 3350, 17 GM/ POWD.PACK PO SCH (09:36)
--- NOTE | 2019-07-17 09:36 | NUR ---
ROUTINE MEDS ROUTINE MEDS ADMINISTERED ORDERED PER MD, EDUCATION GIVEN, TOLERATED WELL. NO ACUTE DISTRESS NOTED. ALL NEEDS MET. CALL LIGHT IN REACH. CONTINUE TO MONITOR.
--- NOTE | 2019-07-17 10:01 | NUR ---
Nutrition Consult Nutrition Consult received for DTI R Heel 07/16/19 [id number]. Pt was seen and assessed by RD on 07/16/19. Please refer to Nutrition Assessment for details. RD to continue to follow as per nutrition care standards.
--- NOTE | 2019-07-17 11:46 | NUR ---
DC PLANNING CALLED DR MACARIO FOR DC ORDER, CALLED [facility] FOR A FEMALE ROOM TODAY. SPOKE TO PATIENT'S GRANDDAUGHTER JUDY [place] # [phone] AT 11:40 AM, INFORMED HER THE PATIENT WILL BE DISCHARGED TO [facility] TODAY. SHE AGREES WITH DCP. DCP: [facility] ADDRESS: [address] [place] [address] [place] [address] TEL [phone] TRANSPORTATION [facility] # [phone], [facility] WILL CALL. CONTINUE FOLLOW UP WITH DCP NEEDED VERONICA JOVEL CM Addendum: 07/17/19 at 1410 by Carmen Tolbert RN DC PLANNING INFORMED RN AND CHARGED RN FOR PENDING DISCHARGE ORDER, CALLED DR MACARIO AT 14:05 PM FOR DCP. VERONICA JOVEL CM
[2019-07-17 12:00] VITALS: BP_SYST 117
--- NOTE | 2019-07-17 12:00 | NUR ---
ASSISTED PT WITH LUNCH PT AWAKE AND ALERT. HOB ELEVATED. ASSISTED PT WITH LUNCH, TOLERATED WELL. SWALLOW PRECAUTIONS IN PLACE. ALL NEEDS MET. CALL LIGHT IN REACH. CONTINUE TO MONITOR.
[2019-07-17 13:02] VITALS: BP_SYST 108; BP_SYST 124
--- NOTE | 2019-07-17 14:10 | NUR ---
ROUTINE MEDS ROUTINE MEDS ADMINISTERED ORDERED PER MD, EDUCATION GIVEN, TOLERATED WELL. NO ACUTE DISTRESS NOTED. ALL NEEDS MET. CALL LIGHT IN REACH. CONTINUE TO MONITOR.
--- NOTE | 2019-07-17 14:15 | NUR ---
SPOKE TO DR. MACARIO REGARDING D/C. VERIFIED ORDERS, RECEIVED AND CARRIED OUT.
--- NOTE | 2019-07-17 15:00 | NUR ---
SPOKE TO [facility]. PICK-UP AT 1700.
--- NOTE | 2019-07-17 15:36 | NUR ---
FLU VACCINE ADMINISTERED, EDUCATION GIVEN, TOLERATED WELL. SPOKE TO PT'S DAUGHTER ON THE PHONE FOR CONSENT.
[2019-07-17 16:00] VITALS: BP_SYST 124
--- NOTE | 2019-07-17 16:29 | NUR ---
GAVE REPORT TO BECKA FORREST FROM [facility] FOR TRANSFER. WILL BE GOING IN ROOM 34.
--- NOTE | 2019-07-17 17:15 | NUR ---
D/C Patient Patient given medication reconciliation form and D/C instructions. Exit Care provided. Patient verbalized understanding. MD discussed with patient the results and treatment provided. pt not ambulatory, d/c with gurney and ambulance. Patient in stable condition, ID band removed. IV catheter removed, intact and dressing applied, no active bleeding. Patient educated on pain management. All belongings sent with patient.
== END 2019-07-17 17:10 | DRG 480 ==
LOC: SED 20:37 → SMU 23:35
PROVIDERS: ADMIT Family Medicine; ATTEND Family Medicine
PROC: 0QS604Z Reposition Right Upper Femur with Internal Fixation Device, Open Approach (ICD-10-PCS; principal; 2019-07-13 16:00)
DX: S72.141A Displaced intertrochanteric fracture of right femur, initial encounter for closed fracture (principal); E43 Unspecified severe protein-calorie malnutrition; I10 Essential (primary) hypertension; M81.0 Age-related osteoporosis without current pathological fracture; G30.9 Alzheimer's disease, unspecified; F02.80 Dementia in other diseases classified elsewhere, unspecified severity, without behavioral disturbance, psychotic disturbance, mood disturbance, and anxiety; K21.9 Gastro-esophageal reflux disease without esophagitis; F41.9 Anxiety disorder, unspecified; Z79.899 Other long term (current) drug therapy; Z87.891 Personal history of nicotine dependence; W18.39XA Other fall on same level, initial encounter; Y93.89 Activity, other specified; Y92.89 Other specified places as the place of occurrence of the external cause; Y99.8 Other external cause status; Z68.22 Body mass index [BMI] 22.0-22.9, adult
CPT/HCPCS: 36415; 71045; 72170-TC; 72192-TC; 73502; 76000; 80048; 80053; 81003; 83605; 83735-TC; 85025; 85610-TC; 85730-TC; 86710; 86886; 86900; 86901; 87040-TC; 87081; 87086; 93005; 94010; 96365; 97110-GP; 97530-GP; 99285; C1713; C1769; J0690; J1100; J1170; J1650; J2060; J2175; J2405; J2704; J3010; J3490